=== PATIENT | female | born 1965 | race Caucasian/White ===

== ENCOUNTER 2022-02-05 16:16 | Emergency (ER) | payer MEDICARE ==
[~2022-02-05] VITALS: Ht 175.3 cm; Wt 68.9 kg
[2022-02-05] MEDS ORDERED: AZIT-12 PO (16:25)
[2022-02-05] MEDS ORDERED: HYDR12.55 PO (16:25)
[2022-02-05] MEDS ORDERED: AUGM500T34 PO (16:25)
[2022-02-05] MEDS ORDERED: ENTY1INJ IV (16:25)
[2022-02-05] MEDS ORDERED: ACET32TAB PO (16:29)
[2022-02-05 17:24] LABS: BASO # 0.1 10^3/uL (0.0-0.2); BASO % 0.7 % (0.0-1.0); EOS # 0.1 10^3/uL (0.0-0.5); HEMATOCRIT 40.4 % (36.0-47.0); HEMOGLOBIN 13.2 g/dl (12.0-15.5); LYMPH # 2.4 10^3/uL (1.5-5.0); LYMPH % 32.8 % (24.0-44.0); MEAN CORPUSCULAR HEMOGLOBIN 30.2 pg (27.0-33.0); MEAN CORPUSCULAR HGB CONC 32.7 g/dl (32.0-36.5); MEAN CORPUSCULAR VOLUME 92.4 fl (80.0-96.0); MONO # 0.4 10^3/uL (0.0-0.8); MONO % 5.5 % (2.0-8.0); NEUTROPHILS # 4.3 10^3/uL (1.5-8.5); NEUTROPHILS % 59.2 % (36.0-66.0); PLATELET COUNT, AUTOMATED 334 10^3/uL (150-450); RED BLOOD COUNT 4.37 10^6/uL (4.00-5.40); WHITE BLOOD COUNT 7.2 10^3/uL (4.0-10.0)
[2022-02-05 17:42] LABS: BLOOD UREA NITROGEN 12 MG/DL (7-18); C REACTIVE PROTEIN QUANTITATIV 1.44 MG/DL (0.00-0.30); CALCIUM LEVEL 9.6 MG/DL (8.5-10.1); CARBON DIOXIDE LEVEL 28 MEQ/L (21-32); CHLORIDE LEVEL 107 MEQ/L (98-107); CREATININE FOR GFR 0.66 MG/DL (0.55-1.30); GLOMERULAR FILTRATION RATE > 60.0 (>51); GLUCOSE, FASTING 128 MG/DL (70-100); POTASSIUM SERUM 3.6 MEQ/L (3.5-5.1); SODIUM LEVEL 140 MEQ/L (136-145)
[2022-02-05 17:47] LABS: ERYTHROCYTE SEDIMENTATION RATE 40 mm/hr (0-30)
[2022-02-05] MEDS ORDERED: ASPIRIN 81MG ENTERIC TABLET PO ONE (19:35)
[2022-02-05] MEDS ORDERED: ECOT81TA5 PO (19:40)
[2022-02-05 19:42] VITALS: BP 160/90
== END 2022-02-05 20:14 | disposition home or self-care (01) ==
LOC: M ED 16:16
DX: I82.819 Embolism and thrombosis of superficial veins of unspecified lower extremity (principal); W55.01XA Bitten by cat, initial encounter; I10 Essential (primary) hypertension; K50.90 Crohn's disease, unspecified, without complications; Z79.899 Other long term (current) drug therapy; Y99.9 Unspecified external cause status; Z79.82 Long term (current) use of aspirin; Z79.83 Long term (current) use of bisphosphonates

== ENCOUNTER → 2024-04-24 | Outpatient (CLI) | payer MEDICARE ==
[~2024-04-24] MED LIST: ACET32TAB PO; AUGM500T34 PO; AZIT-12 PO; ECOT81TA5 PO; ENTY1INJ IV; HYDR12.55 PO; ISOVUE-370 76% 100ML VIAL ONE
== END ==
LOC: M PLAIMG 13:05
PROVIDERS: ATTEND Internal Medicine Gastroenterology
DX: K59.9 Functional intestinal disorder, unspecified (principal); Z86.0101 Personal history of adenomatous and serrated colon polyps
CPT/HCPCS: 72194; Q9967